=== PATIENT | male | born 1955 | race Caucasian/White ===

== ENCOUNTER → 2018-11-09 14:58 | Outpatient (CLI) | payer MEDICARE | END | disposition home or self-care (01) | LOC: D.LABREF 14:58 | PROVIDERS: ATTEND Urology | DX: R31.9 Hematuria, unspecified (principal) ==

== ENCOUNTER → 2018-11-12 15:01 | Outpatient (CLI) | payer MEDICARE | END | disposition home or self-care (01) | LOC: D.CT 15:01 | PROVIDERS: ATTEND Urology | DX: R31.21 Asymptomatic microscopic hematuria (principal) ==

== ENCOUNTER 2018-12-07 07:05 | Day surgery (SDC) | payer MEDICARE ==
[~2018-12-07] VITALS: Ht 167.6 cm; Wt 79.4 kg
[2018-12-07 07:19] VITALS: Ht 167.6 cm; Wt 79.4 kg
--- NOTE | 2018-12-07 13:06 | OP ---
PATIENT NAME: LOYD RUTLEDGE MEDICAL RECORD: [id number] :55 LOCATION:[facility] ADMISSION DATE: SURGEON: LARISSA DENT MD DATE OF OPERATION: 12/07/2018 SURGEON: Larissa Dent MD ANESTHESIA: TIVA by Emily Vu CRNA DIAGNOSES: 1. Elevated PSA of 8.59 on 10/20/2018. 2. Microscopic hematuria. PROCEDURES: Cystoscopy, transrectal ultrasound, and prostate biopsy. FINDINGS: On cystoscopy, bilateral lateral lobe obstruction of the prostate. Diffuse bladder inflammation, suggestive of interstitial cystitis. On transrectal ultrasound, 44.5-gram prostate. No hypoechoic areas. Intraprostatic stones were seen. SPECIMENS: Prostate biopsy cores. BLOOD LOSS: Minimal. CLINICAL HISTORY: This is a 63-year-old male who was referred by Luciana Hernández for an elevated PSA level of 8.59. His previous PSA was 2 years ago and it was 6.5 then. At that time, he was living in [place] and he saw a local urologist. That urologist did want to perform a prostate biopsy, but the patient had moved subsequently. Urinalysis at Dr. Hernández's office also showed microscopic hematuria. He had hematuria workup performed, which included CT scan of abdomen and pelvis. It did not show any renal masses or stones. The bladder was somewhat distended and the prostate was found to be enlarged on the CT scan. Urine cytology did not show any tumor cells. He comes today for cystoscopy and prostate biopsy. The patient was given Ancef on-call to the OR. He is not allergic to any medications. DESCRIPTION OF PROCEDURE: He was placed under sedation and placed into dorsal lithotomy position. He was prepped and draped. Cystoscopy was performed with a 17-Bengali cystoscope. The penile urethra was not obstructed. There were no strictures. The prostatic urethra shows bilateral lateral lobe enlargement, which is somewhat obstructive. There is no median lobe. Going into the bladder, he has no bladder tumors seen. He has single ureteral orifices on each side. He has diffuse bladder inflammation with glomerulations, which is suggestive of interstitial cystitis. However, he really has minimal voiding symptoms. The bladder was emptied through the scope sheath and then the scope was removed. We then introduced the transrectal ultrasound probe. Prostate size measurements were obtained and the prostate was estimated to be 44.5 grams in size. Sextant biopsies were then obtained with at least 3 cores from each sextant. Once all the specimens were obtained, then the procedure was terminated. I will see the patient in followup later this week or early next week to review the pathology results with him. TRANSINT:[id number] Voice Confirmation ID: [id number] DOCUMENT ID: [id number] OPERATIVE REPORT [id number] LOYD RUTLEDGE ROBERT S MD at 1306 CC: [id number] DICTATION DATE: 12/07/18 1122 INVESTIGATOR NARCOTICS: 12/07/18 1257 [facility] [address] [place] [address]
== END 2018-12-07 13:30 | disposition home or self-care (01) ==
LOC: D.OPS 07:05 → D.PAN 08:45 → D.OPS 08:45 → D.PAN 09:35 → D.OPS 10:25 → D.PAN 10:25 → D.OPS 13:30
PROVIDERS: ATTEND Urology
DX: C61 Malignant neoplasm of prostate (principal); R31.29 Other microscopic hematuria; N42.0 Calculus of prostate; Z01.812 Encounter for preprocedural laboratory examination

== ENCOUNTER → 2018-12-20 10:04 | Outpatient (CLI) | payer MEDICARE ==
[2018-12-07 07:19] VITALS: BMI 28.3
== END | disposition home or self-care (01) ==
LOC: D.NM 10:04
PROVIDERS: ATTEND Urology
DX: C61 Malignant neoplasm of prostate (principal)